=== PATIENT | female | born 1980 | race Caucasian/White ===

== ENCOUNTER 2016-09-04 10:50 | Emergency (ER) | payer OTHER ==
[~2016-09-04] VITALS: Ht 165.1 cm; Wt 73.0 kg
[2016-09-04] MEDS ORDERED: IBUPROFEN 600MG TABLET PO STA (13:56)
[2016-09-04 14:15] VITALS: BP 141/65
== END 2016-09-04 15:56 | disposition home or self-care (01) ==
LOC: ER 13:37
DX: S70.12XA Contusion of left thigh, initial encounter (principal); S30.0XXA Contusion of lower back and pelvis, initial encounter; S70.02XA Contusion of left hip, initial encounter; S63.602A Unspecified sprain of left thumb, initial encounter; M25.512 Pain in left shoulder; W01.0XXA Fall on same level from slipping, tripping and stumbling without subsequent striking against object, initial encounter; Y93.89 Activity, other specified; Y92.89 Other specified places as the place of occurrence of the external cause; R03.0 Elevated blood-pressure reading, without diagnosis of hypertension
CPT/HCPCS: 72100; 73110; 73502; 81025; 99284